=== PATIENT | female | born 1960 | race Caucasian/White ===

== ENCOUNTER 2024-02-09 11:58 | Emergency (ER) | payer BC ==
[2024-02-09] MEDS: Proparacaine 0.5% Ophth Soln 15 ML Bottle EYERT ONE (12:14)
[2024-02-09] MEDS: Sodium Chloride 0.9% Irrigation 500 ML Container IRR PRN (12:14)
[2024-02-09] MEDS: Erythromycin Base 0.5% Ophth Oint 3.5 GM Tube EYERT ONE (12:38)
[2024-02-09] MEDS: Fluorescein 1 MG Ophth Strip EYERT ONE (12:38)
== END 2024-02-09 12:57 | disposition home or self-care (01) ==
LOC: DL.ED 11:58 → MERGE 11:58 → DL.ED 12:57
DX: S05.01XA Injury of conjunctiva and corneal abrasion without foreign body, right eye, initial encounter (principal); X58.XXXA Exposure to other specified factors, initial encounter
CPT/HCPCS: 99283; A9270; J7040; J3490